=== PATIENT | female | born 1940 | race Caucasian/White ===

== ENCOUNTER 2020-10-09 19:29 | IRF | payer MEDICARE, BC, SELFPAY ==
--- NOTE | ~2020-10-09 | CT_ITS ---
EXAMINATION: CT thoracic lumbar wo con EXAM DATE: 10/15/2020 14:58 INDICATION: Uncontrolled thoracolumbar pain. TECHNIQUE: Spiral CT thoracolumbar spine was performed without contrast. Axial, coronal and sagittal images of the thoracic spine were reviewed. Axial, coronal and sagittal images of the lumbar spine we re reviewed. The dose-length product (DLP) for this examination was 1894.68 mGy-cm. The exposure was tailored according to patient size (auto mA exposure control), and iterative reconstruction (ASIR) w as used as additional dose reduction technique. There is no prior study for comparison. FINDINGS: Short right C7 rib. There are 11 thoracic rib-bearing vertebral bodies. There is transition al thoracolumbar vertebral body which will be designated L1. THORACIC SPINE: Mild diffuse thoracic facet arthropathy, mild to moderate disc disease. The thoracic vertebral body heights are maintained. There is moderate to severe right neural foraminal stenosis at T1-2, moderate on the left. The other thoracic neural foramen appear widely patent. The vertebral imelda dies are aligned in the AP dimension. Paraspinal soft tissue is unremarkable. LUMBAR SPINE: There is a burst fracture of L1 with moderate loss of this vertebral body anteriorly an d centrally, mild loss posteriorly with 5 mm retropulsion. This has been injected with methylmethacry late. Fracture does involve the pedicles and there is a vertical nondisplaced fracture through the po sterior arch in the midline into the spinous process. Moderate central canal stenosis at this level. No other thoracolumbar fractures. Level by level evaluation: There is 3 mm anterolisthesis L4 on L5 without spondylolysis. There is mod erate disc disease, vacuum disc phenomenon L5-S1. Sacrum, sacroiliac joints are intact. T12-L1: There is a mild diffuse disc bulge. Facet arthropathy: None. Neural foraminal stenosis: No stenosis. Central canal stenosis: Mild at the disc, moderate at L2 superior endplate level. L1-L2: There is a mild diffuse disc bulge. Facet arthropathy: Mild. Neural foraminal stenosis: Mild right. Central canal stenosis: Mild. L2-L3: There is a mild diffuse disc bulge. Facet arthropathy: Mild to moderate. Neural foraminal stenosis: No stenosis. Central canal stenosis: No stenosis. L3-L4: There is a mild to moderate diffuse disc bulge. Facet arthropathy: Moderate to severe . Ligamentum flavum enlargement. Neural foraminal stenosis: Mild to moderate left, mild right. Central canal stenosis: Moderate to severe. L4-L5: There is a moderate diffuse disc bulge. Facet arthropathy: Severe . Ligamentum flavum enlargement. Neural foraminal stenosis: Mild to moderate bilateral. Central canal stenosis: Severe. L5-S1: There is a moderate diffuse disc bulge. Facet arthropathy: Severe right, moderate left. Neural foraminal stenosis: Severe right, mild left. Central canal stenosis: Mild to moderate. IMPRESSION: 1. 11 thoracic rib-bearing vertebral bodies, with transitional thoracolumbar segment designated L1. 2. Treated L1 burst fracture with retropulsion causing moderate central canal stenosis. 3. L4-5 grade 1 anterolisthesis, severe central canal stenosis. 4. Less spondylosis other levels. Reviewed, dictated and finalized at location B. ED [facility]OKER IMPRESSION: 1. 11 thoracic rib-bearing vertebral bodies, with transitional thoracolumbar s egment designated L1. 2. Treated L1 burst fracture with retropulsion causing moderate central canal stenosis. 3. L4-5 grade 1 anterolisthesis, severe central canal stenosis. 4. Less spondylosis other levels.
--- NOTE | 2020-10-09 19:14 | ADMGEN ---
This patient, Ayesha Leon, was admitted to [facility] Room 225-02. Patient/family oriented to hospital policies and general routines including ID bracelet, bed and alarms, visiting hours, pain management, procedures, bathroom and other care routines, personal items, smoking policy, room service/diet, and visiting hours. Information on how to activate the Rapid Response Team has been discussed. Patient/Family are encouraged to report perceived risks to care and to ask questions if they do not understand what they are told or what they should do.
[2020-10-09 19:25] VITALS: PULSE 70; RESP 18; O2SAT 92
[2020-10-09 20:00] VITALS: BMI 35.0
[2020-10-09 20:56] VITALS: BP 146/69; PULSE 69; RESP 18; TEMP 36.6; O2SAT 91
[2020-10-09] MEDS: HYDROcodone/acetaminophen (*CRX) 5-325 MG TABLET 1 TAB PO (23:38)
[2020-10-10] MEDS: LEVOTHYROXINE SODIUM 25 MCG TABLET PO (04:51)
[2020-10-10] MEDS: HYDROcodone/acetaminophen (*CRX) 5-325 MG TABLET 1 TAB PO ×4 (04:51→17:51)
[2020-10-10 05:18] LABS: Basophils Absolute Auto 0.1 K/mm3 (0.0-0.1); Basophils Percent Auto 1.2 % (0.2-1.2); Eosinophils Absolute Auto 0.2 K/mm3 (0-0.3); Eosinophils Percent Auto 3.4 % (0-4.4); Hematocrit 38.2 % (37.0-47.0); Hemoglobin 12.8 g/dL (12.0-15.0); Immature Granulocyte Absolute 0.03 K/mm3 (0.00-0.031); Immature Granulocyte Percent A 0.5 % (0-0.5); Lymphocytes Absolute Auto 0.95 K/mm3 (0.9-3.2); Lymphocytes Percent Auto 16.4 % (18.3-44.2); Mean Corpuscular HGB Conc 33.5 g/dl (32-36); Mean Corpuscular Volume 89.5 fl (80-100); Monocytes Absolute Auto 0.6 K/mm3 (0.1-0.6); Monocytes Percent Auto 10.5 % (2.6-8.5); Neutrophils Absolute Auto 3.9 K/mm3 (1.3-6.7); Platelet Count Result 251 k/mm3 (150-375); Red Blood Count 4.27 M/mm3 (4.2-5.4); Red Cell Distribution Width 12.3 % (11.5-14.5); White Blood Count 5.8 K/mm3 (4.5-10.0)
[2020-10-10 05:33] LABS: Anion Gap 3 mmol/L (8-16); Blood Urea Nitrogen 18 mg/dL (7-17); Calcium 8.1 mg/dL (8.4-10.2); Carbon Dioxide 29 mmol/L (22-30); Chloride 104 mmol/L (98-107); Estimated CRCL calculation 74 ml/min; Estimated Glomerular Filt Rate > 60; Glucose 94 mg/dL (65-105); Potassium 4.4 mmol/L (3.4-5.0); Sodium 136 mmol/L (137-145)
[2020-10-10 05:37] VITALS: BP 149/60; PULSE 71; RESP 20; TEMP 36.4; O2SAT 93
[2020-10-10] MEDS: CHOLECALCIFEROL 1,000 UNITS TABLET 1000 UNITS PO (09:04)
[2020-10-10] MEDS: PANTOPRAZOLE 40 MG TABLET PO (09:04)
[2020-10-10] MEDS: TRIAMCINOLONE ACET 0.1% OINT 15 GM TUBE 1 APPLIC TOPICAL ×2 (09:04→17:51)
[2020-10-10] MEDS: ASPIRIN 81 MG ENTERIC TABLET PO (09:04)
[2020-10-10] MEDS: CYANOCOBALAMIN 250 MCG TABLET PO (09:04)
[2020-10-10] MEDS: TAMSULOSIN HCL 0.4 MG CAPSULE PO (09:04)
[2020-10-10] MEDS: OMEGA 3 POLYUNSAT FATTY ACIDS 1 GM CAP PO ×2 (09:04→17:51)
[2020-10-10] MEDS: MINOCYCLINE HCL 50 MG CAPSULE PO ×2 (09:04→17:52)
[2020-10-10] MEDS: CYCLOBENZAPRINE HCL 10 MG TABLET PO (12:50)
[2020-10-10 12:53] VITALS: BMI 35.0
--- NOTE | 2020-10-10 13:37 | PCNSR ---
On 10/10/20, the student, Rocío Jung, provided care and completed [facility] documentation on this patient. I have reviewed the student's documentation and agree with the findings.
[2020-10-10 14:00] VITALS: BP 124/72; PULSE 76; RESP 18; TEMP 36.1; O2SAT 95
--- NOTE | 2020-10-10 14:43 | RPD ---
INDIVIDUALIZED PLAN OF CARE FOR Ayesha Leon Brief Synthesis of Pre-Admission Screen, Post-Admission Evaluation and Therapy Evaluations: The patient presents to rehab with a mechanical fall that resulted in a L1 vertebral fracture. Comorbidities include ankle arthritis, chronic constipation, chronic lower back pain, chronic osteoarthritis, GERD, hyperlipidemia, hypothyroidism, osteoporosis, s/p fall, right mid-lung atelectasis or infiltrate, ABLA, post-operative pain, hypocalcemia, hypoalbuminemia, and face inflammatory rash. The complexity of the patient's medical management, nursing, and therapy needs require an inpatient rehab hospital stay with a physician-led interdisciplinary team approach. The patient?s needs will be best met in an intensive program vs. at a lower level of care. The patient requires physician services for medical oversight, management of postop complications in setting of present comorbidities, and pain management. She will be followed at least three times a week by the rehabilitation physician. Labs will be drawn to monitor blood counts and electrolytes periodically. The patient requires nursing services for DVT prophylactics, infection protection, medication management and education, pressure relief, and wound care. Deficits include:ADLs, Balance, Endurance, Family Training/Education, Mobility, Pain Management, ROM, Safety, Strength, and Transfers. Chief Of Pediatric Urology/Case Management for: Discharge Planning and Patient/Family Counseling Physical Therapy: 5 days per week for 90 minutes. Treatments may include: Therapeutic Exercise, Gait Training, Neuromuscular Re-education, Transfer Training, Community Reintegration, Bed Mobility, Patient/Family Education, Wheelchair Mobility Group Therapy/Concurrent Therapy Rationales: -Improve attention span during functional activities in a distracted environment. -Enhance problem solving and/or adequate judgment skills during functional activities in a distracted environment. -Promote increased safety awareness in a distracted environment to reduce fall risk with functional tasks, transfers, and ambulation to allow a more safe, self-sufficient return to the home environment. -Improve dynamic balance skills to promote safety and independence with functional activities in a distracted environment for maximum gain. Occupational Therapy: 5 days per week for 90 minutes. Treatments may include: Therapeutic Exercise, Therapeutic Activity, Cognitive Training, Self-Care Transfer Training, Community Reintegration, Home Management, Patient/Family Education, Wheelchair Mobility Training, Energy Conservation Training Group Therapy/Concurrent Therapy Rationales: -Allow therapist to observe and teach generalization and carry-over of skills learned in individual therapy. -Enhance problem solving and sequencing skills during therapeutic activities in a distracted environment. -Promote increased safety awareness in a realistic setting to reduce fall risk with functional tasks due to visual and verbal distractions. -Increase functional level with ADLs, ADL transfers and use of adaptive equipment through therapeutic activities with others while promoting safety to allow a more safe, self-sufficient return home. Medical Prognosis: Good Anticipated Length of Stay: 10 days Rehab Goals: Eating Goal: 06-Independent Oral Hygiene Goal: 06-Independent Toileting Hygiene Goal: 06-Independent Shower/Bathe Self Goal: 05-Setup or Clean Up Assistance Upper Body Dressing Goal: 06-Independent Lower Body Dressing Goal: 05-Setup or Clean Up Assistance Putting On/Taking Off Footwear Goal: 05-Setup or Clean Up Assistance Rolling Left and Right Goal: 06-Independent Sit to Lying Goal: 06-Independent Lying to Sitting on Side of Bed Goal: 06-Independent Sit to Stand Goal: 06-Independent Chair/[id number]-[id number] Transfer Goal: 06-Independent Toilet Transfer Goal: 06-Independent Car Transfer Goal: 06-Independent Walk 10' Goal: 06-Independent
--- NOTE | 2020-10-10 15:26 | WPDREHABHP ---
H&P: HPI History of Present Illness Date/Time: 10/10/20 15:26 Chief Complaint: L1 vertebral fracture Narrative: Ayesha Leon is a 80 year old femaleHISTORY OF PRESENT ILLNESS: 80 years old right-handed female has been admitted to the rehab floor of [facility] with the primary rehab impairment category of 0 [id number] and etiological diagnosis of L1 vertebral fracture in addition to the comorbid conditions of 1. Hypothyroidism 2. Lipidemia 3. GERD 4. No history of COVID I saw the patient [id number] on October 10, 2020 at 2:00 p.m. # history and physical exam: the patient is an 80 years old female with past medical history significant for 1. Hypothyroidism 2. hyper lipidemia 3. GERD who presented to [facility] On October 05, 2020 after a mechanical fall. The patient reported she was up at 3:00 a.m. to help her walk to the bathroom, when he lost his balance and fell on top of her. She noted mostly pain in her lower back at that time with electrical pain shooting down to her both feet. The patient denied loss of consciousness or head injury. CT of the lumbar spine revealed an L1 burst fracture with moderate loss of height and 5mm in close mint of the spinal canal secondary to read to Anat probe pulsed posterior border. CT scan of the pelvis is unremarkable. The patient experienced hypoxia secondary to narcotics and desats id to 71% in emergency department after given Dilaudid. Chest x-ray revealed cardiac structure within normal limits, left lung was clear, however atelectasis or infiltrative changes were present in the right mid lung. Neurosurgical service was consulted and surgical intervention was recommended. The patient underwent an L1 balloon kyphoplasty with bone symmetric injected on October 06, 2020 postop complication included acute postoperative pain, hypoxia secondary to narcotic,ABLA, hypocalcemia, hypoalbuminemia, and infirmity rash of face for which she has been taking minocycline as per the flattening machine operator. The patient was awake alert oriented x3 and was discharged to [facility] on Lovenox up until ambulating a distance of 150ft consistently. No back brace was issued but the patient has spinal precautions. She is also receiving tramadol for pain control. And patient to follow up with neurosurgeon 1 week after the discharge from the rehab #COVID: the patient has not traveled outside the [place] or had contact with someone who is ill that has traveled outside the [place] in the past 21 days. The patient has not traveled to an area of the [place] there is experiencing known transmission of the Coronavirus and has not had close personal contact with anyone that has. The patient does not have a fever the patient is not experiencing lower respiratory illness symptoms. The patient received 1st COVID vaccine on September 12, 2020 and on October 05, 2020 COVID test was negative # therapy was initiated at the [facility] care facility and the patient transferred to us from [facility] on October 09, 2020 FALLS OR SURGERIES: The patient has had [no] major surgeries in the 100 days prior to admission. They had [no] falls in the past year. They had [no] falls with injury in the past year. 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 PAST SURGICAL HISTORY: Excision of squamous cell skin cancer of right shoulder, TKR. SOCIAL HISTORY: The patient lives with her in a 1 story home with 3 steps to enter and hand rail. The patient was totally independent with all ADL S, IADL S, and mobility without assistive device. Patient continues to drive. she is the caregiver for her and assist him with all daily tasks. The patient is going to [facility] October 09, 2020 while the patient is in rehab. Plan is for patient to
[2020-10-10 20:00] VITALS: PULSE 66; RESP 16; O2SAT 94
[2020-10-10] MEDS: ENOXAPARIN 40 MG/0.4 ML SYRINGE SUB-Q (20:39)
[2020-10-10] MEDS: traMADol HCL (*CRX) 50 MG TABLET PO (20:43)
[2020-10-10 22:00] VITALS: BP 117/59; PULSE 66; RESP 16; TEMP 36.4; O2SAT 94
[2020-10-11] MEDS: HYDROcodone/acetaminophen (*CRX) 5-325 MG TABLET 1 TAB PO ×5 (00:20→23:51)
[2020-10-11 06:00] VITALS: BP 126/64; PULSE 66; RESP 16; TEMP 36.4; O2SAT 92
[2020-10-11] MEDS: LEVOTHYROXINE SODIUM 25 MCG TABLET PO (06:24)
[2020-10-11] MEDS: TRIAMCINOLONE ACET 0.1% OINT 15 GM TUBE 1 APPLIC TOPICAL ×2 (08:53→17:53)
[2020-10-11] MEDS: ASPIRIN 81 MG ENTERIC TABLET PO (08:53)
[2020-10-11] MEDS: CHOLECALCIFEROL 1,000 UNITS TABLET 1000 UNITS PO (08:53)
[2020-10-11] MEDS: TAMSULOSIN HCL 0.4 MG CAPSULE PO (08:53)
[2020-10-11] MEDS: PANTOPRAZOLE 40 MG TABLET PO (08:53)
[2020-10-11] MEDS: OMEGA 3 POLYUNSAT FATTY ACIDS 1 GM CAP PO ×2 (08:53→17:53)
[2020-10-11] MEDS: MINOCYCLINE HCL 50 MG CAPSULE PO ×2 (08:53→17:53)
[2020-10-11] MEDS: CYANOCOBALAMIN 250 MCG TABLET PO (08:53)
[2020-10-11] MEDS: traMADol HCL (*CRX) 50 MG TABLET PO (08:55)
[2020-10-11] MEDS: CYCLOBENZAPRINE HCL 10 MG TABLET PO ×2 (08:55→23:07)
--- NOTE | 2020-10-11 13:02 | WPDNEURORHBP ---
Subjective Date/time seen: 10/11/20 13:02 80 years old with L1 vertebral body compression fracture in addition to hypothyroidism, lipidemia, GERD, her lab reveals WBC 5.8 hemoglobin 12.8 platelet count 251 basic metabolic panel normal, remains afebrile with temp of 36.4? pulse 66 respirations 16 pulse ox 92 blood pressure 126/64, patient is on room air Review of Systems Review of Systems: All systems reviewed & are unremarkable except as noted in HPI and below Exam Const: General: cooperative, no acute distress, alert and awake Nutritional Appearance: well nourished and overweight Orientation/consciousness: patient oriented x3 Eyes: General: appearance normal, both eyes and all related structures Neck: Neck: full ROM Resp: Effort & Inspection: normal respiratory effort Auscultation: clear to auscultation bilaterally Cardio: Jugular venous distension: no JVD Rate: regular rate Rhythm: regular rhythm GI: Auscultation: normal bowel sounds Skin: General skin exam: no rashes or lesions noted Neuro: General: patient oriented x3 Cranial nerves: Yes CN's II-XII intact bilaterally Cognition (Neuro): normal cognition Motor exam (neuro): 5/5 motor strength present throughout, Pronator motor function not present and No tremor noted Sensory Exam: normal sensation Deep tendon reflexes (DTR's): Right triceps reflex intensity grade: 1+, Left triceps reflex intensity grade: 1+, Rt Biceps (C5, C6): 1+, Left biceps reflex intensity grade: 1+, Right brachioradialis reflex intensity grade: 1+, Left brachioradialis reflex intensity grade: 1+, Right patellar reflex intensity grade: 1+, Left patellar reflex intensity grade: 1+, Right ankle reflex intensity grade: 1+ and Left ankle reflex intensity grade: 1+ Plantar Reflex Responses: downgoing: bilateral Coordination: [id number] test normal Psych: Appearance: grossly normal Objective Data Vital Signs Vital Signs: Vital Signs - 24 hr 10/10/20 14:00 10/10/20 20:00 10/10/20 22:00 Temperature 36.1 C L 36.4 C Pulse Rate 76 66 66 Respiratory Rate 18 16 16 Blood Pressure 124/72 117/59 L Pulse Oximetry 95 94 94 10/11/20 06:00 Temperature 36.4 C L Pulse Rate 66 Respiratory Rate 16 Blood Pressure 126/64 Pulse Oximetry 92 Intake/Output Intake/Output: Intake & Output 10/08/20 10/09/20 10/10/20 10/11/20 23:59 23:59 23:59 23:59 Intake Total 720 480 Balance 720 480 Meds/Results Medications: Active Medications Generic Name Dose Route Start Last Admin Trade Name Freq PRN Reason Stop Dose Admin Acetaminophen 650 mg 10/09/20 22:48 Acetaminophen 325 Mg Tablet PO Q4-6H PRN Pain Rated 1-3 Hydrocodone Bitart/Acetaminophen 1 tab 10/10/20 12:00 10/11/20 12:11 Hydrocodone/Acetaminophen (*Crx) 5-325 Mg Tablet PO 1 tab Q6HR SALOME Administration Al Hydrox/Mg Hydrox/Simethicone 10 ml 10/09/20 22:48 Mag Hydrox/Al Hydrox/Simeth 30 Ml Udc PO Q6H PRN Indigestion Aspirin 81 mg 10/10/20 09:00 10/11/20 08:53 Aspirin 81 Mg Enteric Tablet PO 81 mg DAILY SALOME Administration Bisacodyl 10 mg 10/09/20 22:48 Bisacodyl 10 Mg Suppository RECTAL DAILY PRN Constipation Calcium Carbonate 500 mg 10/10/20 09:00 10/11/20 08:53 Calcium/Vitamin D 500 Mg Tablet PO 500 mg QAM SALOME Administration Cyanocobalamin 250 mcg 10/10/20 09:00 10/11/20 08:53 Cyanocobalamin 250 Mcg Tablet PO 250 mcg DAILY SALOME Administration Cyclobenzaprine HCl 10 mg 10/09/20 22:48 10/11/20 08:55 Cyclobenzaprine Hcl 10 Mg Tablet PO 10 mg TID PRN Administration Muscle Spasm Docusate Sodium 100 mg 10/10/20 08:35 Docusate Sodium 100 Mg Capsule PO BID PRN Constipation Enoxaparin Sodium 40 mg 10/10/20 21:00 10/10/20 20:39 Enoxaparin 40 Mg/0.4 Ml Syringe SUB-Q 40 mg HS SALOME Administration Fish Oil 1 gm 10/10/20 09:00 10/11/20 08:53 [place] 3 Polyunsat Fatty Acids 1 Gm Cap PO 1 gm BID [facility]
[2020-10-11 14:00] VITALS: BP 129/70; PULSE 76; RESP 18; TEMP 36.1; O2SAT 97
[2020-10-11] MEDS: ENOXAPARIN 40 MG/0.4 ML SYRINGE SUB-Q (20:34)
[2020-10-11 22:00] VITALS: BP 127/64; PULSE 72; RESP 18; TEMP 36.2; O2SAT 92
[2020-10-12 04:27] VITALS: BP 131/60; PULSE 65; RESP 18; TEMP 36.2; O2SAT 90
[2020-10-12] MEDS: LEVOTHYROXINE SODIUM 25 MCG TABLET PO (05:54)
[2020-10-12] MEDS: HYDROcodone/acetaminophen (*CRX) 5-325 MG TABLET 1 TAB PO ×3 (05:54→17:58)
[2020-10-12 08:00] VITALS: PULSE 65; RESP 18; O2SAT 90
[2020-10-12] MEDS: OMEGA 3 POLYUNSAT FATTY ACIDS 1 GM CAP PO ×2 (08:32→16:32)
[2020-10-12] MEDS: PANTOPRAZOLE 40 MG TABLET PO (08:32)
[2020-10-12] MEDS: ASPIRIN 81 MG ENTERIC TABLET PO (08:32)
[2020-10-12] MEDS: MINOCYCLINE HCL 50 MG CAPSULE PO ×2 (08:32→16:32)
[2020-10-12] MEDS: TAMSULOSIN HCL 0.4 MG CAPSULE PO (08:32)
[2020-10-12] MEDS: CHOLECALCIFEROL 1,000 UNITS TABLET 1000 UNITS PO (08:32)
[2020-10-12] MEDS: CYCLOBENZAPRINE HCL 10 MG TABLET PO ×2 (08:32→21:16)
[2020-10-12] MEDS: CYANOCOBALAMIN 250 MCG TABLET PO (08:32)
[2020-10-12] MEDS: TRIAMCINOLONE ACET 0.1% OINT 15 GM TUBE 1 APPLIC TOPICAL ×2 (08:34→16:33)
--- OUTSIDE RECORDS SUMMARY | 2020-10-12 10:03 | XMS_ITS ---
:[address] [facility] Address [facility] [place] [address] [place] [address] Care Team Providers Name Role Phone Jose Angela DO Primary Care Provider Reason for Referral (Routine) Status Reason Specialty Diagnoses / Referred By Contact Refe rred To Contact Procedures Canceled Procedures Francisco Caban MD OT eval and treat [address] [place] [address] [phone] Phone: (Routine) Status Reason Specialty Diagnoses / Referred By Contact Refe rred To Contact Procedures Canceled Procedures Francisco Caban MD PT eval and treat [address] [place] [address] [phone] Phone: Surgical (Routine) Status Reason Specialty Diagnoses / Referred By Referred To
--- NOTE | 2020-10-12 12:46 | PCNFU ---
Nutrition Follow-Up Complete: Inadequate oral intake related to pain from L1 vertebral fracture as evidenced by 25% meal consumption. Goal: Meet estimated nutritional needs. Pt current nutrition is a regular diet. Last recorded weight is 86.9 kg. No new weight recorded. Recommend re-weighing patient. Bowel Motility: + BM 10/10 Labs Reviewed: No new labs as of 10/10 Meds Noted:Mylanta, Synthroid, Vitamin B-12, Flexeril, Protonix, Dulcolax, Ultram, Colace, Vitamin D, Lovenox, Lovaza Additional Notes: Spoke with patient. Patient reports not having a great appetite but is doing the best she can. She is currently consuming between 20-100% of her meals. Her appetite fluctuates tremendously. Besides that she had no complaints. She enjoys the food and knows she needs to eat as much as she can to get better. Offered supplement to patient and she was not at all interested. She wants to get her nutrients through food. Monitor patients labs, medications, oral intake, and weight every 5 days.
--- NOTE | 2020-10-12 12:55 | PCNSR ---
On 10/12/20, the student, Rocío Jung, provided care and completed [facility] documentation on this patient. I have reviewed the student's documentation and agree with the findings.
[2020-10-12 14:00] VITALS: BP 129/64; PULSE 90; RESP 20; TEMP 36.7; O2SAT 94
[2020-10-12] MEDS: traMADol HCL (*CRX) 50 MG TABLET PO ×2 (16:33→21:15)
[2020-10-12 20:00] VITALS: PULSE 74; RESP 18; O2SAT 92
[2020-10-12] MEDS: ENOXAPARIN 40 MG/0.4 ML SYRINGE SUB-Q (21:12)
[2020-10-12 22:00] VITALS: BP 128/65; PULSE 74; RESP 18; TEMP 36.2; O2SAT 92
[2020-10-13] MEDS: HYDROcodone/acetaminophen (*CRX) 5-325 MG TABLET 1 TAB PO ×6 (00:23→20:29)
[2020-10-13 05:06] VITALS: BP 127/60; PULSE 66; RESP 18; TEMP 36.1; O2SAT 92
[2020-10-13] MEDS: LEVOTHYROXINE SODIUM 25 MCG TABLET PO (06:14)
[2020-10-13 08:00] VITALS: PULSE 86; RESP 20; O2SAT 96
[2020-10-13] MEDS: ASPIRIN 81 MG ENTERIC TABLET PO (09:30)
[2020-10-13] MEDS: TRIAMCINOLONE ACET 0.1% OINT 15 GM TUBE 1 APPLIC TOPICAL ×2 (09:31→16:34)
[2020-10-13] MEDS: CYANOCOBALAMIN 250 MCG TABLET PO (09:31)
[2020-10-13] MEDS: CHOLECALCIFEROL 1,000 UNITS TABLET 1000 UNITS PO (09:31)
[2020-10-13] MEDS: MINOCYCLINE HCL 50 MG CAPSULE PO ×2 (09:31→16:34)
[2020-10-13] MEDS: TAMSULOSIN HCL 0.4 MG CAPSULE PO (09:31)
[2020-10-13] MEDS: OMEGA 3 POLYUNSAT FATTY ACIDS 1 GM CAP PO ×2 (09:31→16:34)
[2020-10-13] MEDS: traMADol HCL (*CRX) 50 MG TABLET PO ×2 (09:31→14:14)
[2020-10-13] MEDS: PANTOPRAZOLE 40 MG TABLET PO (09:31)
[2020-10-13] MEDS: CYCLOBENZAPRINE HCL 10 MG TABLET PO (10:42)
[2020-10-13 14:00] VITALS: BP 98/68; PULSE 86; RESP 20; TEMP 36.6; O2SAT 96
--- NOTE | 2020-10-13 14:45 | WPDNEURORHBP ---
Subjective Date/time seen: 10/13/20 14:45 80 years old with L1 vertebral body compression fracture in addition to hypothyroidism, hyperlipidemia, GERD, has been involved in the physical therapy and occupational therapy remains stable temp of 36.1? pulse 66 respiration 18 pulse ox 92 on room air blood pressure 127/60 ,no changes in the medication, no new lab Review of Systems Review of Systems: All systems reviewed & are unremarkable except as noted in HPI and below Functional Status Ambulation Ability Ability to Ambulate 10 Feet: Minimum Assistance X 1 Ambulation Assistive Devices: Walker, Wheeled Exam Const: General: cooperative and comfortable Nutritional Appearance: overweight Limitations: no limitations HENMT: Head: normocephalic Ears: hearing grossly normal bilaterally General nose exam: No nasal discharge present Eyes: General: appearance normal, both eyes and all related structures Neck: Neck: full ROM Resp: Effort & Inspection: normal respiratory effort Auscultation: clear to auscultation bilaterally Cardio: Jugular venous distension: no JVD Rate: regular rate GI: Auscultation: normal bowel sounds Neuro: General: patient oriented x3 Cranial nerves: Yes CN's II-XII intact bilaterally Gait exam (Neuro): Unable to assess gait Sensory Exam: normal sensation Deep tendon reflexes (DTR's): Right triceps reflex intensity grade: 1+, Left triceps reflex intensity grade: 1+, Rt Biceps (C5, C6): 1+, Left biceps reflex intensity grade: 1+, Right brachioradialis reflex intensity grade: 1+, Left brachioradialis reflex intensity grade: 1+, Right patellar reflex intensity grade: 1+, Left patellar reflex intensity grade: 1+, Right ankle reflex intensity grade: 1+ and Left ankle reflex intensity grade: 1+ Plantar Reflex Responses: downgoing: right, left and bilateral Coordination: [id number] test normal Psych: Appearance: grossly normal Objective Data Vital Signs Vital Signs: Vital Signs - 24 hr 10/12/20 20:00 10/12/20 22:00 10/13/20 05:06 Temperature 36.2 C L 36.1 C L Pulse Rate 74 74 66 Respiratory Rate 18 18 18 Blood Pressure 128/65 127/60 Pulse Oximetry 92 92 92 Intake/Output Intake/Output: Intake & Output 10/10/20 10/11/20 10/12/20 10/13/20 23:59 23:59 23:59 23:59 Intake Total 720 960 720 480 Balance 720 960 720 480 Meds/Results Medications: Active Medications Generic Name Dose Route Start Last Admin Trade Name Lenora PRN Reason Stop Dose Admin Acetaminophen 650 mg 10/09/20 22:48 Acetaminophen 325 Mg Tablet PO Q4-6H PRN Pain Rated 1-3 Hydrocodone Bitart/Acetaminophen 1 tab 10/13/20 12:00 10/13/20 12:35 Hydrocodone/Acetaminophen (*Crx) 5-325 Mg Tablet PO 1 tab Q4H SALOME Administration Al Hydrox/Mg Hydrox/Simethicone 10 ml 10/09/20 22:48 Mag Hydrox/Al Hydrox/Simeth 30 Ml Udc PO Q6H PRN Indigestion Aspirin 81 mg 10/10/20 09:00 10/13/20 09:30 Aspirin 81 Mg Enteric Tablet PO 81 mg DAILY SALOME Administration Bisacodyl 10 mg 10/09/20 22:48 Bisacodyl 10 Mg Suppository RECTAL DAILY PRN Constipation Calcium Carbonate 500 mg 10/10/20 09:00 10/13/20 09:31 Calcium/Vitamin D 500 Mg Tablet PO 500 mg QAM SALOME Administration Cyanocobalamin 250 mcg 10/10/20 09:00 10/13/20 09:31 Cyanocobalamin 250 Mcg Tablet PO 250 mcg DAILY SALOME Administration Cyclobenzaprine HCl 10 mg 10/09/20 22:48 10/13/20 10:42 Cyclobenzaprine Hcl 10 Mg Tablet PO 10 mg TID PRN Administration Muscle Spasm Docusate Sodium 100 mg 10/10/20 08:35 Docusate Sodium 100 Mg Capsule PO BID PRN Constipation Enoxaparin Sodium 40 mg 10/10/20 21:00 10/12/20 21:12 Enoxaparin 40 Mg/0.4 Ml Syringe SUB-Q 40 mg HS SALOME Administration Fish Oil 1 gm 10/10/20 09:00 10/13/20 09:31 [place] 3 Polyunsat Fatty Acids 1 Gm Cap PO 1 gm BID SALOME Administration Levothyroxine Sodium 25 mcg 10/10/20 06:30 10/13/20 06:1
[2020-10-13 20:00] VITALS: PULSE 86; RESP 20; O2SAT 96
[2020-10-13] MEDS: ENOXAPARIN 40 MG/0.4 ML SYRINGE SUB-Q (20:30)
[2020-10-13 21:36] VITALS: BP 117/62; PULSE 80; RESP 18; TEMP 36.4; O2SAT 97
[2020-10-14] MEDS: CYCLOBENZAPRINE HCL 10 MG TABLET PO ×2 (02:25→10:11)
[2020-10-14 04:39] VITALS: BP 122/60; PULSE 66; RESP 18; TEMP 36.2; O2SAT 90
[2020-10-14] MEDS: LEVOTHYROXINE SODIUM 25 MCG TABLET PO (05:01)
[2020-10-14] MEDS: HYDROcodone/acetaminophen (*CRX) 5-325 MG TABLET 1 TAB PO ×5 (05:01→20:25)
[2020-10-14] MEDS: ASPIRIN 81 MG ENTERIC TABLET PO (08:40)
[2020-10-14] MEDS: TAMSULOSIN HCL 0.4 MG CAPSULE PO (08:40)
[2020-10-14] MEDS: MINOCYCLINE HCL 50 MG CAPSULE PO ×2 (08:40→17:07)
[2020-10-14] MEDS: OMEGA 3 POLYUNSAT FATTY ACIDS 1 GM CAP PO ×2 (08:40→17:07)
[2020-10-14] MEDS: PANTOPRAZOLE 40 MG TABLET PO (08:40)
[2020-10-14] MEDS: TRIAMCINOLONE ACET 0.1% OINT 15 GM TUBE 1 APPLIC TOPICAL ×2 (08:40→17:08)
[2020-10-14] MEDS: CHOLECALCIFEROL 1,000 UNITS TABLET 1000 UNITS PO (08:40)
[2020-10-14] MEDS: CYANOCOBALAMIN 250 MCG TABLET PO (08:41)
[2020-10-14] MEDS: traMADol HCL (*CRX) 50 MG TABLET PO (10:11)
[2020-10-14 14:00] VITALS: BP 107/58; PULSE 75; RESP 20; TEMP 36.3; O2SAT 95
[2020-10-14] MEDS: ENOXAPARIN 40 MG/0.4 ML SYRINGE SUB-Q (20:25)
[2020-10-14 21:21] VITALS: BP 120/65; PULSE 81; RESP 18; TEMP 36.1; O2SAT 99
[2020-10-15] MEDS: HYDROcodone/acetaminophen (*CRX) 5-325 MG TABLET 1 TAB PO ×6 (00:02→20:54)
[2020-10-15] MEDS: LEVOTHYROXINE SODIUM 25 MCG TABLET PO (05:16)
[2020-10-15 05:27] VITALS: BP 126/76; PULSE 76; RESP 20; TEMP 36.4; O2SAT 100
[2020-10-15] MEDS: CHOLECALCIFEROL 1,000 UNITS TABLET 1000 UNITS PO (08:36)
[2020-10-15] MEDS: ASPIRIN 81 MG ENTERIC TABLET PO (08:36)
[2020-10-15] MEDS: PANTOPRAZOLE 40 MG TABLET PO (08:37)
[2020-10-15] MEDS: CYANOCOBALAMIN 250 MCG TABLET PO (08:37)
[2020-10-15] MEDS: OMEGA 3 POLYUNSAT FATTY ACIDS 1 GM CAP PO ×2 (08:37→17:10)
[2020-10-15] MEDS: MINOCYCLINE HCL 50 MG CAPSULE PO ×2 (08:37→17:10)
[2020-10-15] MEDS: TRIAMCINOLONE ACET 0.1% OINT 15 GM TUBE 1 APPLIC TOPICAL ×2 (08:37→17:11)
[2020-10-15] MEDS: TAMSULOSIN HCL 0.4 MG CAPSULE PO (08:37)
[2020-10-15] MEDS: CYCLOBENZAPRINE HCL 10 MG TABLET PO (08:43)
--- NOTE | 2020-10-15 10:04 | WPDNEURORHBP ---
Subjective Date/time seen: 10/15/20 10:04 80 years old with L1 vertebral body compression fracture in addition to hypothyroidism, hyperlipidemia, GERD, has been involved in therapy regularly, remains afebrile with temp of 36.4? pulse 76 respirations 20 pulse ox 100 blood pressure 126/76, no new lab at this time Review of Systems Review of Systems: All systems reviewed & are unremarkable except as noted in HPI and below Functional Status Ambulation Ability Ability to Ambulate 10 Feet: Minimum Assistance X 1 Ambulation Assistive Devices: Walker, Wheeled Exam Const: General: cooperative, comfortable and no acute distress Nutritional Appearance: average body habitus and overweight Orientation/consciousness: patient oriented x3 Limitations: other limitations ( neurological) HENMT: Ears: hearing grossly normal bilaterally General nose exam: Normal external nose present and No nasal discharge present Face and sinus: normal facial exam Mouth: Yes Normal oral and palatal mucosa present Eyes: General: appearance normal, both eyes and all related structures Neck: Neck: full ROM Resp: Effort & Inspection: normal respiratory effort Auscultation: clear to auscultation bilaterally Cardio: Jugular venous distension: no JVD Rate: regular rate Rhythm: regular rhythm GI: Auscultation: normal bowel sounds Skin: General skin exam: no rashes or lesions noted Neuro: General: patient oriented x3 Cranial nerves: Yes CN's II-XII intact bilaterally Cognition (Neuro): normal cognition Speech: normal speech Gait exam (Neuro): Assisted gait required Motor exam (neuro): 5/5 motor strength present throughout Sensory Exam: normal sensation Plantar Reflex Responses: downgoing: bilateral Coordination: [id number] test normal Psych: Appearance: grossly normal Objective Data Vital Signs Vital Signs: Vital Signs - 24 hr 10/14/20 14:00 10/14/20 21:21 10/15/20 05:27 Temperature 36.3 C L 36.1 C L 36.4 C Pulse Rate 75 81 76 Respiratory Rate 20 18 20 Blood Pressure 107/58 L 120/65 126/76 Pulse Oximetry 95 99 100 Intake/Output Intake/Output: Intake & Output 10/12/20 10/13/20 10/14/20 10/15/20 23:59 23:59 23:59 23:59 Intake Total 720 720 720 240 Balance 720 720 720 240 Meds/Results Medications: Active Medications Generic Name Dose Route Start Last Admin Trade Name Freq PRN Reason Stop Dose Admin Acetaminophen 650 mg 10/09/20 22:48 Acetaminophen 325 Mg Tablet PO Q4-6H PRN Pain Rated 1-3 Hydrocodone Bitart/Acetaminophen 1 tab 10/13/20 12:00 10/15/20 08:36 Hydrocodone/Acetaminophen (*Crx) 5-325 Mg Tablet PO 1 tab Q4H [facility] Administration Al Hydrox/Mg Hydrox/Simethicone 10 ml 10/09/20 22:48 Mag Hydrox/Al Hydrox/Simeth 30 Ml Udc PO Q6H PRN Indigestion Aspirin 81 mg 10/10/20 09:00 10/15/20 08:36 Aspirin 81 Mg Enteric Tablet PO 81 mg DAILY [facility] Administration Bisacodyl 10 mg 10/09/20 22:48 Bisacodyl 10 Mg Suppository RECTAL DAILY PRN Constipation Calcium Carbonate 500 mg 10/10/20 09:00 10/15/20 08:36 Calcium/Vitamin D 500 Mg Tablet PO 500 mg QAM [facility] Administration Cyanocobalamin 250 mcg 10/10/20 09:00 10/15/20 08:37 Cyanocobalamin 250 Mcg Tablet PO 250 mcg DAILY [facility] Administration Cyclobenzaprine HCl 10 mg 10/09/20 22:48 10/15/20 08:43 Cyclobenzaprine Hcl 10 Mg Tablet PO 10 mg TID PRN Administration Muscle Spasm Docusate Sodium 100 mg 10/10/20 08:35 Docusate Sodium 100 Mg Capsule PO BID PRN Constipation Enoxaparin Sodium 40 mg 10/10/20 21:00 10/14/20 20:25 Enoxaparin 40 Mg/0.4 Ml Syringe SUB-Q 40 mg HS [facility] Administration Fish Oil 1 gm 10/10/20 09:00 10/15/20 08:37 [place] 3 Polyunsat Fatty Acids 1 Gm Cap PO 1 gm BID [facility] Administration Levothyroxine Sodium 25 mcg 10/10/20 06:30 10/15/20 05:16 Levothyroxine Sodium 25 Mcg Tablet PO 25 mcg DAILY@0630 [facility] Administrati
[2020-10-15] MEDS: traMADol HCL (*CRX) 50 MG TABLET PO (13:52)
[2020-10-15 14:00] VITALS: BP 137/82; PULSE 109; RESP 20; TEMP 36.2; O2SAT 96
--- NOTE | 2020-10-15 14:55 | PCPTNOTE ---
Ayesha Leon was evaluated for a wheeled walker on 10/15/2020 by this physical therapist. The wheeled walker will resolve patient's mobility limitations and will be used for ADL's within the home. The patient can safely use the wheeled walker. ?The wheeled walker will resolve the patient?s mobility deficits, including poor endurance, strength and balance deficits.
--- NOTE | 2020-10-15 15:56 | PCPTNOTE ---
Carmen Curran PTA completed an inpatient rehab wheelchair evaluation on Ayesha Leon on 10/15/2020. The patient is unable to safely and independently ambulate household distances due to their current impairments. Their diagnosis is L1 Vertebral fx and their impairments include decreased strength, decreased endurance, decreased range of motion, decreased balance, and lower extremity weakness. Ayesha's weight bearing status is weight-bearing as tolerated on the bilateral lower legs. The patient demonstrates significant functional mobility limitations that impair their ability to participate in mobility-related activities of daily living (MRADLs), including toileting, feeding, dressing, grooming, and bathing in the customary locations in the home. These limitations cannot be sufficiently resolved by the use of an appropriately fitted cane or walker. It is recommended that the patient utilize a wheelchair for functional mobility within the home in order to facilitate optimal safety, independence and participation in all MRADL's and adequately access their home environment on a regular basis. The patient's home provides adequate access between rooms, maneuvering space, and surfaces to accommodate the recommended wheelchair. The use of a wheelchair for functional mobility is strongly recommended and the patient is receptive to using the wheelchair. The use of this wheelchair will significantly improve the patient's ability to participate in MRADLS and the patient will use it on a regular basis in the home. This will facilitate optimal safety, independence, and participation. The patient has demonstrated sufficient physical and mental capabilities needed to safely propel a manual wheelchair that is provided in the home during a typical day. Recommended Wheelchair Frame: STANDARD Recommended Wheelchair Size: 18 X 18 Recommended Wheelchair Cushion: STANDARD Wheelchair Leg Recommendations: BILATERAL SWING AWAY LEG RESTS -Anti-tippers are recommended due to patient demonstrating increased risk for falls. They would benefit from anti-tippers with added safety and stabilization. Carmen Curran PTA 10/15/20 Evaluating Therapist Date I agree with and certify that the above recommendation is medically necessary. Referring Physician Date I agree with and certify that the above recommendation is medically necessary. Referring Physician Date
[2020-10-15] MEDS: ENOXAPARIN 40 MG/0.4 ML SYRINGE SUB-Q (20:55)
[2020-10-15 21:17] VITALS: BP 104/75; PULSE 82; RESP 18; TEMP 36.4; O2SAT 93
[2020-10-15 21:20] VITALS: BP 104/75; PULSE 82; RESP 18; TEMP 36.4; O2SAT 93
[2020-10-15 21:32] VITALS: BP 104/75; PULSE 82; RESP 18; TEMP 36.4; O2SAT 93
[2020-10-16] MEDS: HYDROcodone/acetaminophen (*CRX) 5-325 MG TABLET 1 TAB PO ×6 (00:46→20:43)
[2020-10-16] MEDS: LEVOTHYROXINE SODIUM 25 MCG TABLET PO (05:34)
[2020-10-16 05:38] VITALS: BP 124/65; PULSE 74; RESP 18; TEMP 36.2; O2SAT 95
[2020-10-16] MEDS: CHOLECALCIFEROL 1,000 UNITS TABLET 1000 UNITS PO (08:04)
[2020-10-16] MEDS: TAMSULOSIN HCL 0.4 MG CAPSULE PO (08:05)
[2020-10-16] MEDS: CYANOCOBALAMIN 250 MCG TABLET PO (08:05)
[2020-10-16] MEDS: MINOCYCLINE HCL 50 MG CAPSULE PO ×2 (08:05→16:46)
[2020-10-16] MEDS: PANTOPRAZOLE 40 MG TABLET PO (08:05)
[2020-10-16] MEDS: OMEGA 3 POLYUNSAT FATTY ACIDS 1 GM CAP PO ×2 (08:05→16:46)
[2020-10-16] MEDS: ASPIRIN 81 MG ENTERIC TABLET PO (08:05)
[2020-10-16] MEDS: TRIAMCINOLONE ACET 0.1% OINT 15 GM TUBE 1 APPLIC TOPICAL ×2 (08:06→16:47)
--- NOTE | 2020-10-16 11:03 | PC.NURSE ---
Addendum entered by Moon Chow RN 10/16/20 15:23: Appointment is made for patient with Dr. Holm on October 22 at 's office. Patient is at present filling out paperwork. Son Anton is aware and will take patient to the appointment after discharge from [facility]. Appointment is at 1:30PM. Original Note: CT of thoracic and lumbar back done on 10/15, results to Dr. Holm and he discussed with patient. She will need to set up appointment with Dr. Holm at his office after discharge to discuss surgery. patient tearful and needing much reassurance.
--- NOTE | 2020-10-16 13:52 | WPDNEURORHBP ---
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 of enlargement mild to moderate central canal stenosis at L5-S1 and mild central stenosis at L1-L2 these findings were discussed with the patient as well as family she will be probably referred to neurosurgical service according Review of Systems Review of Systems: All systems reviewed & are unremarkable except as noted in HPI and below Functional Status Ambulation Ability Ability to Ambulate 10 Feet: Contact Guard Ambulation Assistive Devices: Walker, Wheeled Exam Const: General: cooperative, alert, awake, acute distress and uncomfortable Nutritional Appearance: overweight Orientation/consciousness: patient oriented x3 HENMT: Head: normocephalic Ears: hearing grossly normal bilaterally General nose exam: Normal external nose present and No nasal discharge present Face and sinus: normal facial exam Mouth: Yes Normal oral and palatal mucosa present Eyes: General: appearance normal, both eyes and all related structures Alignment and Position: alignment normal Periorbital: periorbital findings normal Eyelids: eyelids normal Conjunctivae: conjunctivae normal Sclera: sclerae normal Cornea: corneas normal Pupils: Equal, round and reactive pupils present EOM: EOMs intact bilaterally Neck: Neck: full ROM Resp: Effort & Inspection: able to speak in complete sentences Cardio: Rhythm: regular rhythm GI: Auscultation: normal bowel sounds Skin: General skin exam: no rashes or lesions noted Neuro: General: patient oriented x3 Cranial nerves: Yes CN's II-XII intact bilaterally Cognition (Neuro): normal cognition Sensory Exam: Sensory deficit (Neuro) Deep tendon reflexes (DTR's): Right patellar reflex intensity grade: 1+, Left patellar reflex intensity grade: 1+, Right ankle reflex intensity grade: 1+ and Left ankle reflex intensity grade: 1+ Plantar Reflex Responses: downgoing: bilateral Coordination: [id number] test normal Objective Data Vital Signs Vital Signs: Vital Signs - 24 hr 10/15/20 14:00 10/15/20 21:17 10/15/20 21:20 Temperature 36.2 C L 36.4 C L 36.4 C L Pulse Rate 109 H 82 82 Respiratory Rate 20 18 18 Blood Pressure 137/82 104/75 104/75 Pulse Oximetry 96 93 93 10/15/20 21:32 10/16/20 05:38 Temperature 36.4 C L 36.2 C L Pulse Rate 82 74 Respiratory Rate 18 18 Blood Pressure 104/75 124/65 Pulse Oximetry 93 95 Intake/Output Intake/Output: Intake & Output 10/13/20 10/14/20 10/15/20 10/16/20 23:59 23:59 23:59 23:59 Intake Total 720 720 480 840 Balance 720 720 480 840 Meds/Results Medications: Active Medications Generic Name Dose Route Start Last Admin Trade Name Freq PRN Reason Stop Dose Admin Acetaminophen 650 mg 10/09/20 22:48 Acetaminophen 325 Mg Tablet PO Q4-6H PRN Pain Rated 1-3 Hydrocodone Bitart/Acetaminophen 1 tab 10/13/20 12:00 10/16/20 12:10 Hydrocodone/Acetaminophen (*Crx) 5-325 Mg Tablet PO 1 tab Q4H [facility] Administration Al Hydrox/Mg Hydrox/Simethicone 10 ml 10/09/20 22:48 Mag Hydrox/Al Hydrox/Simeth 30 Ml Udc PO Q6H PRN Indigestion Aspirin 81 mg 10/10/20 09:00 10/16/20 08:05 Aspirin 81 Mg Enteric Tablet PO 81 mg DAILY [facility] Administration Bisacodyl 10 mg 10/09/20 22:48 Bisacodyl 10 Mg Suppository RECTAL DAILY PRN Constipation Calcium Carbonate 500 mg 10/10/20 09:00 10/16/20 08:06 Calcium/Vitamin D 500 Mg Tablet PO 500 mg QAM [facility] Administration Cyanocobalamin 250 mcg 10/10/20 09:00 10/16/20 08:05 Cyanocobalamin 250 Mcg Tablet PO 250 mcg DAILY [facility] Administration Cyclobenzaprine HCl 10 mg
[2020-10-16 14:00] VITALS: BP 151/91; PULSE 96; RESP 18; TEMP 36.9; O2SAT 99
[2020-10-16] MEDS: ENOXAPARIN 40 MG/0.4 ML SYRINGE SUB-Q (20:43)
[2020-10-16 22:00] VITALS: BP 109/65; PULSE 90; RESP 16; TEMP 36.3; O2SAT 94
[2020-10-17] MEDS: HYDROcodone/acetaminophen (*CRX) 5-325 MG TABLET 1 TAB PO ×6 (00:23→20:38)
[2020-10-17 04:55] LABS: Basophils Absolute Auto 0.1 K/mm3 (0.0-0.1); Basophils Percent Auto 1.5 % (0.2-1.2); Eosinophils Absolute Auto 0.4 K/mm3 (0-0.3); Eosinophils Percent Auto 7.7 % (0-4.4); Hematocrit 35.8 % (37.0-47.0); Hemoglobin 11.8 g/dL (12.0-15.0); Immature Granulocyte Absolute 0.03 K/mm3 (0.00-0.031); Immature Granulocyte Percent A 0.6 % (0-0.5); Lymphocytes Absolute Auto 1.08 K/mm3 (0.9-3.2); Lymphocytes Percent Auto 20.7 % (18.3-44.2); Mean Corpuscular Hemoglobin 29.3 pg (26-34); Mean Corpuscular Volume 88.8 fl (80-100); Mean Platelet Volume 8.6 fl (7.4-10.4); Monocytes Absolute Auto 0.5 K/mm3 (0.1-0.6); Monocytes Percent Auto 10.2 % (2.6-8.5); Neutrophils Absolute Auto 3.1 K/mm3 (1.3-6.7); Neutrophils Percent Auto 59.3 % (45.5-73.1); Platelet Count Result 355 k/mm3 (150-375); Red Blood Count 4.03 M/mm3 (4.2-5.4); Red Cell Distribution Width 12.5 % (11.5-14.5); White Blood Count 5.2 K/mm3 (4.5-10.0)
[2020-10-17] MEDS: LEVOTHYROXINE SODIUM 25 MCG TABLET PO (05:55)
[2020-10-17 06:00] VITALS: BP 101/59; PULSE 68; RESP 16; TEMP 36.2; O2SAT 92
[2020-10-17 06:35] LABS: Anion Gap 4 mmol/L (8-16); Blood Urea Nitrogen 16 mg/dL (7-17); Calcium 8.3 mg/dL (8.4-10.2); Carbon Dioxide 29 mmol/L (22-30); Chloride 102 mmol/L (98-107); Estimated CRCL calculation 55 ml/min; Estimated Glomerular Filt Rate > 60; Glucose 101 mg/dL (65-105); Potassium 3.6 mmol/L (3.4-5.0); Sodium 135 mmol/L (137-145)
[2020-10-17] MEDS: CYANOCOBALAMIN 250 MCG TABLET PO (08:19)
[2020-10-17] MEDS: ASPIRIN 81 MG ENTERIC TABLET PO (08:19)
[2020-10-17] MEDS: TRIAMCINOLONE ACET 0.1% OINT 15 GM TUBE 1 APPLIC TOPICAL ×2 (08:19→16:56)
[2020-10-17] MEDS: OMEGA 3 POLYUNSAT FATTY ACIDS 1 GM CAP PO ×2 (08:19→16:56)
[2020-10-17] MEDS: CHOLECALCIFEROL 1,000 UNITS TABLET 1000 UNITS PO (08:19)
[2020-10-17] MEDS: MINOCYCLINE HCL 50 MG CAPSULE PO ×2 (08:19→16:55)
[2020-10-17] MEDS: PANTOPRAZOLE 40 MG TABLET PO (08:19)
[2020-10-17] MEDS: TAMSULOSIN HCL 0.4 MG CAPSULE PO (08:19)
[2020-10-17] MEDS: CYCLOBENZAPRINE HCL 10 MG TABLET PO (11:03)
[2020-10-17] MEDS: LACTULOSE 20 GM/30 ML UDC 30 GM PO (12:30)
--- NOTE | 2020-10-17 12:59 | PCDIET ---
Nutrition Follow-Up Complete: Nutrition Diagnosis: Inadequate oral intake related to pain from L1 vertebral fracture as evidenced by 25% meal consumption. Nutrition Goal: Meet estimated nutritional needs. Goal met. Patient consumed average of 73% of meals since 10/13/20 on regular diet. States appetite is not great, but has been able to eat pretty well at most meals. Last recorded weight is 86.9 kg. Recommend obtaining new weight. Bowel Motility: Last documented BM on 10/14/20. Labs Reviewed: Hgb (11.8), Hct (35.8), Na (135), Ca (8.3) Meds Noted: [place], Oscal, Vitamin B12, Colace, Lovaza, Synthroid, Protonix, Vitamin D Additional Notes: Back incision with steri strips. No documented pressure sores. Will continue to monitor with same goal. Nutrition Monitoring and Evaluation: Follow up in 7 days.
[2020-10-17 14:00] VITALS: BP 119/68; PULSE 91; RESP 18; TEMP 36.7; O2SAT 97
--- NOTE | 2020-10-17 16:36 | WPDNEURORHBP ---
Subjective Date/time seen: 10/17/20 16:36 80 years old with L1 vertebral body compression fracture and recent CT scan compatible with spinal stenosis she will be referred to neurosurgical service once she is discharged from here Review of Systems Review of Systems: All systems reviewed & are unremarkable except as noted in HPI and below Functional Status Ambulation Ability Ability to Ambulate 10 Feet: Contact Guard Ambulation Assistive Devices: Walker, Wheeled Exam Const: Limitations: no limitations Eyes: General: appearance normal, both eyes and all related structures Neck: Neck: full ROM Resp: Effort & Inspection: able to speak in complete sentences Cardio: Rate: regular rate GI: Auscultation: normal bowel sounds Neuro: General: patient oriented x3 Cranial nerves: Yes CN's II-XII intact bilaterally Cognition (Neuro): normal cognition Motor exam (neuro): 5/5 motor strength present throughout Deep tendon reflexes (DTR's): Right patellar reflex intensity grade: 1+, Left patellar reflex intensity grade: 1+, Right ankle reflex intensity grade: 0 and Left ankle reflex intensity grade: 0 Psych: Appearance: grossly normal Objective Data Vital Signs Vital Signs: Vital Signs - 24 hr 10/16/20 22:00 10/17/20 06:00 10/17/20 14:00 Temperature 36.3 C L 36.2 C L 36.7 C Pulse Rate 90 68 91 Respiratory Rate 16 16 18 Blood Pressure 109/65 101/59 L 119/68 Pulse Oximetry 94 92 97 Intake/Output Intake/Output: Intake & Output 10/14/20 10/15/20 10/16/20 10/17/20 23:59 23:59 23:59 23:59 Intake Total 605 913 7862 480 Balance 481 211 3836 480 Meds/Results Medications: Active Medications Generic Name Dose Route Start Last Admin Trade Name Freq PRN Reason Stop Dose Admin Acetaminophen 650 mg 10/09/20 22:48 Acetaminophen 325 Mg Tablet PO Q4-6H PRN Pain Rated 1-3 Hydrocodone Bitart/Acetaminophen 1 tab 10/13/20 12:00 10/17/20 11:03 Hydrocodone/Acetaminophen (*Crx) 5-325 Mg Tablet PO 1 tab Q4H [facility] Administration Al Hydrox/Mg Hydrox/Simethicone 10 ml 10/09/20 22:48 Mag Hydrox/Al Hydrox/Simeth 30 Ml Udc PO Q6H PRN Indigestion Aspirin 81 mg 10/10/20 09:00 10/17/20 08:19 Aspirin 81 Mg Enteric Tablet PO 81 mg DAILY [facility] Administration Bisacodyl 10 mg 10/09/20 22:48 Bisacodyl 10 Mg Suppository RECTAL DAILY PRN Constipation Calcium Carbonate 500 mg 10/10/20 09:00 10/17/20 08:19 Calcium/Vitamin D 500 Mg Tablet PO 500 mg QAM [facility] Administration Cyanocobalamin 250 mcg 10/10/20 09:00 10/17/20 08:19 Cyanocobalamin 250 Mcg Tablet PO 250 mcg DAILY [facility] Administration Cyclobenzaprine HCl 10 mg 10/09/20 22:48 10/17/20 11:03 Cyclobenzaprine Hcl 10 Mg Tablet PO 10 mg TID PRN Administration Muscle Spasm Docusate Sodium 100 mg 10/10/20 08:35 Docusate Sodium 100 Mg Capsule PO BID PRN Constipation Enoxaparin Sodium 40 mg 10/10/20 21:00 10/16/20 20:43 Enoxaparin 40 Mg/0.4 Ml Syringe SUB-Q 40 mg HS [facility] Administration Fish Oil 1 gm 10/10/20 09:00 10/17/20 08:19 [place] 3 Polyunsat Fatty Acids 1 Gm Cap PO 1 gm BID [facility] Administration Levothyroxine Sodium 25 mcg 10/10/20 06:30 10/17/20 05:55 Levothyroxine Sodium 25 Mcg Tablet PO 25 mcg DAILY@0630 [facility] Administration Minocycline HCl 50 mg 10/10/20 09:00 10/17/20 08:19 Minocycline Hcl 50 Mg Capsule PO 50 mg BID [facility] Administration Non-Formulary Medication 1 applic 10/10/20 09:00 10/10/20 12:26 Fluorouracil [Efudex] TOPICAL 11/09/20 09:01 Not Given DAILY [facility] Pantoprazole Sodium 40 mg 10/10/20 09:00 10/17/20 08:19 Pantoprazole 40 Mg Tablet PO 40 mg QAM [facility] Administration Senna/Docusate Sodium 2 tab 10/17/20 21:00 Senna/Docusate Sodium Tablet PO Q12H [facility] Tamsulosin HCl 0.4 mg 10/10/20 09:00 10/17/20 08:19 Tamsulosin Hcl 0.4 Mg Capsule PO 0.4 mg DAILY [facility] Administration Trama
[2020-10-17 20:00] VITALS: PULSE 91; RESP 18; O2SAT 97
[2020-10-17] MEDS: SENNA/DOCUSATE SODIUM TABLET 2 TAB PO (20:37)
[2020-10-17] MEDS: ENOXAPARIN 40 MG/0.4 ML SYRINGE SUB-Q (20:38)
[2020-10-17 21:56] VITALS: BP 107/62; PULSE 83; RESP 18; TEMP 36.5; O2SAT 93
[2020-10-18] MEDS: HYDROcodone/acetaminophen (*CRX) 5-325 MG TABLET 1 TAB PO ×7 (00:46→23:42)
[2020-10-18] MEDS: LEVOTHYROXINE SODIUM 25 MCG TABLET PO (04:48)
[2020-10-18 05:55] VITALS: BP 111/54; PULSE 86; RESP 18; TEMP 36.2; O2SAT 96
[2020-10-18] MEDS: OMEGA 3 POLYUNSAT FATTY ACIDS 1 GM CAP PO ×2 (07:55→17:07)
[2020-10-18] MEDS: MINOCYCLINE HCL 50 MG CAPSULE PO ×2 (07:55→17:08)
[2020-10-18] MEDS: ASPIRIN 81 MG ENTERIC TABLET PO (07:55)
[2020-10-18] MEDS: TRIAMCINOLONE ACET 0.1% OINT 15 GM TUBE 1 APPLIC TOPICAL ×2 (07:55→17:07)
[2020-10-18] MEDS: SENNA/DOCUSATE SODIUM TABLET 2 TAB PO ×2 (07:55→20:40)
[2020-10-18] MEDS: CHOLECALCIFEROL 1,000 UNITS TABLET 1000 UNITS PO (07:56)
[2020-10-18] MEDS: TAMSULOSIN HCL 0.4 MG CAPSULE PO (07:56)
[2020-10-18] MEDS: PANTOPRAZOLE 40 MG TABLET PO (07:56)
[2020-10-18] MEDS: CYANOCOBALAMIN 250 MCG TABLET PO (07:56)
[2020-10-18] MEDS: CYCLOBENZAPRINE HCL 10 MG TABLET PO (09:50)
--- NOTE | 2020-10-18 13:11 | WPDNEURORHBP ---
Subjective Date/time seen: 10/18/20 13:11 L1 vertebral body compression fracture in addition to spinal stenosis has been involved in the physical therapy and occupational therapy and looks fairly comfortable vital signs are stable with temp 36.2? blood pressure 111/54, medications unchanged and lab unremarkable Review of Systems Review of Systems: All systems reviewed & are unremarkable except as noted in HPI and below Functional Status Ambulation Ability Ability to Ambulate 10 Feet: Contact Guard Ambulation Assistive Devices: Walker, Wheeled Exam Const: General: cooperative and no acute distress Nutritional Appearance: overweight Orientation/consciousness: oriented to person and oriented to place Eyes: General: appearance normal, both eyes and all related structures Resp: Effort & Inspection: normal respiratory effort and able to speak in complete sentences Auscultation: clear to auscultation bilaterally Cardio: Rate: regular rate Rhythm: regular rhythm Skin: General skin exam: no rashes or lesions noted Neuro: General: oriented to person and oriented to place Cranial nerves: Yes CN's II-XII intact bilaterally Motor exam (neuro): 5/5 motor strength present throughout Psych: Appearance: grossly normal Objective Data Vital Signs Vital Signs: Vital Signs - 24 hr 10/17/20 14:00 10/17/20 20:00 10/17/20 21:56 Temperature 36.7 C 36.5 C Pulse Rate 91 91 83 Respiratory Rate 18 18 18 Blood Pressure 119/68 107/62 Pulse Oximetry 97 97 93 10/18/20 05:55 Temperature 36.2 C L Pulse Rate 86 Respiratory Rate 18 Blood Pressure 111/54 L Pulse Oximetry 96 Intake/Output Intake/Output: Intake & Output 10/15/20 10/16/20 10/17/20 10/18/20 23:59 23:59 23:59 23:59 Intake Total 480 1200 580 480 Balance 480 1200 580 480 Meds/Results Medications: Active Medications Generic Name Dose Route Start Last Admin Trade Name Freq PRN Reason Stop Dose Admin Acetaminophen 650 mg 10/09/20 22:48 Acetaminophen 325 Mg Tablet PO Q4-6H PRN Pain Rated 1-3 Hydrocodone Bitart/Acetaminophen 1 tab 10/13/20 12:00 10/18/20 12:04 Hydrocodone/Acetaminophen (*Crx) 5-325 Mg Tablet PO 1 tab Q4H [facility] Administration Al Hydrox/Mg Hydrox/Simethicone 10 ml 10/09/20 22:48 Mag Hydrox/Al Hydrox/Simeth 30 Ml Udc PO Q6H PRN Indigestion Aspirin 81 mg 10/10/20 09:00 10/18/20 07:55 Aspirin 81 Mg Enteric Tablet PO 81 mg DAILY [facility] Administration Bisacodyl 10 mg 10/09/20 22:48 Bisacodyl 10 Mg Suppository RECTAL DAILY PRN Constipation Calcium Carbonate 500 mg 10/10/20 09:00 10/18/20 07:55 Calcium/Vitamin D 500 Mg Tablet PO 500 mg QAM [facility] Administration Cyanocobalamin 250 mcg 10/10/20 09:00 10/18/20 07:56 Cyanocobalamin 250 Mcg Tablet PO 250 mcg DAILY [facility] Administration Cyclobenzaprine HCl 10 mg 10/09/20 22:48 10/18/20 09:50 Cyclobenzaprine Hcl 10 Mg Tablet PO 10 mg TID PRN Administration Muscle Spasm Docusate Sodium 100 mg 10/10/20 08:35 Docusate Sodium 100 Mg Capsule PO BID PRN Constipation Enoxaparin Sodium 40 mg 10/10/20 21:00 10/17/20 20:38 Enoxaparin 40 Mg/0.4 Ml Syringe SUB-Q 40 mg HS [facility] Administration Fish Oil 1 gm 10/10/20 09:00 10/18/20 07:55 [place] 3 Polyunsat Fatty Acids 1 Gm Cap PO 1 gm BID [facility] Administration Levothyroxine Sodium 25 mcg 10/10/20 06:30 10/18/20 04:48 Levothyroxine Sodium 25 Mcg Tablet PO 25 mcg DAILY@0630 [facility] Administration Minocycline HCl 50 mg 10/10/20 09:00 10/18/20 07:55 Minocycline Hcl 50 Mg Capsule PO 50 mg BID [facility] Administration Non-Formulary Medication 1 applic 10/10/20 09:00 10/10/20 12:26 Fluorouracil [Efudex] TOPICAL 11/09/20 09:01 Not Given DAILY [facility] Pantoprazole Sodium 40 mg 10/10/20 09:00 10/18/20 07:56 Pantoprazole 40 Mg Tablet PO 40 mg QAM [facility] Administration Senna/Docusate Sodium 2 tab 10/17/20 21:00 0
[2020-10-18 14:00] VITALS: BP 103/56; PULSE 86; RESP 18; TEMP 37.2; O2SAT 96
[2020-10-18 20:15] VITALS: PULSE 86; RESP 18; O2SAT 96
[2020-10-18] MEDS: ENOXAPARIN 40 MG/0.4 ML SYRINGE SUB-Q (20:41)
[2020-10-18 22:00] VITALS: BP 107/52; PULSE 89; RESP 18; TEMP 36.2; O2SAT 96
[2020-10-19] MEDS: HYDROcodone/acetaminophen (*CRX) 5-325 MG TABLET 1 TAB PO ×5 (04:43→20:42)
[2020-10-19] MEDS: LEVOTHYROXINE SODIUM 25 MCG TABLET PO (04:44)
[2020-10-19 06:00] VITALS: BP 135/66; PULSE 74; RESP 18; TEMP 36.3; O2SAT 97
[2020-10-19] MEDS: CYANOCOBALAMIN 250 MCG TABLET PO (07:43)
[2020-10-19] MEDS: ASPIRIN 81 MG ENTERIC TABLET PO (07:43)
[2020-10-19] MEDS: PANTOPRAZOLE 40 MG TABLET PO (07:43)
[2020-10-19] MEDS: CHOLECALCIFEROL 1,000 UNITS TABLET 1000 UNITS PO (07:44)
[2020-10-19] MEDS: OMEGA 3 POLYUNSAT FATTY ACIDS 1 GM CAP PO ×2 (07:44→16:38)
[2020-10-19] MEDS: TAMSULOSIN HCL 0.4 MG CAPSULE PO (07:44)
[2020-10-19] MEDS: MINOCYCLINE HCL 50 MG CAPSULE PO ×2 (07:44→16:38)
[2020-10-19] MEDS: SENNA/DOCUSATE SODIUM TABLET 2 TAB PO ×2 (07:44→20:43)
[2020-10-19] MEDS: CYCLOBENZAPRINE HCL 10 MG TABLET PO (07:44)
[2020-10-19 14:00] VITALS: BP 105/59; PULSE 80; RESP 20; TEMP 36.4; O2SAT 93
--- NOTE | 2020-10-19 15:14 | WPDNEURORHBP ---
Subjective Date/time seen: 10/19/20 15:14 L1 vertebral body compression fracture with spinal stenosis involved the physical therapy and also remains afebrile Review of Systems Review of Systems: All systems reviewed & are unremarkable except as noted in HPI and below Functional Status Ambulation Ability Ability to Ambulate 10 Feet: Contact Guard Ambulation Assistive Devices: Walker, Wheeled Exam Const: General: cooperative Nutritional Appearance: average body habitus Orientation/consciousness: oriented to person and patient oriented x3 Limitations: physical limitations Eyes: General: appearance normal, both eyes and all related structures Neck: Neck: full ROM Resp: Effort & Inspection: normal respiratory effort Auscultation: clear to auscultation bilaterally Cardio: Rate: regular rate GI: Auscultation: normal bowel sounds Neuro: General: patient oriented x3 Objective Data Vital Signs Vital Signs: Vital Signs - 24 hr 10/18/20 20:15 10/18/20 22:00 10/19/20 06:00 Temperature 36.2 C L 36.3 C L Pulse Rate 86 89 74 Respiratory Rate 18 18 18 Blood Pressure 107/52 L 135/66 Pulse Oximetry 96 96 97 Intake/Output Intake/Output: Intake & Output 10/16/20 10/17/20 10/18/20 10/19/20 23:59 23:59 23:59 23:59 Intake Total 5478 457 8773 720 Balance 1470 419 9747 720 Meds/Results Medications: Active Medications Generic Name Dose Route Start Last Admin Trade Name Freq PRN Reason Stop Dose Admin Acetaminophen 650 mg 10/09/20 22:48 Acetaminophen 325 Mg Tablet PO Q4-6H PRN Pain Rated 1-3 Hydrocodone Bitart/Acetaminophen 1 tab 10/13/20 12:00 10/19/20 12:06 Hydrocodone/Acetaminophen (*Crx) 5-325 Mg Tablet PO 1 tab Q4H [facility] Administration Al Hydrox/Mg Hydrox/Simethicone 10 ml 10/09/20 22:48 Mag Hydrox/Al Hydrox/Simeth 30 Ml Udc PO Q6H PRN Indigestion Aspirin 81 mg 10/10/20 09:00 10/19/20 07:43 Aspirin 81 Mg Enteric Tablet PO 81 mg DAILY [facility] Administration Bisacodyl 10 mg 10/09/20 22:48 Bisacodyl 10 Mg Suppository RECTAL DAILY PRN Constipation Calcium Carbonate 500 mg 10/10/20 09:00 10/19/20 07:44 Calcium/Vitamin D 500 Mg Tablet PO 500 mg QAM [facility] Administration Cyanocobalamin 250 mcg 10/10/20 09:00 10/19/20 07:43 Cyanocobalamin 250 Mcg Tablet PO 250 mcg DAILY [facility] Administration Cyclobenzaprine HCl 10 mg 10/09/20 22:48 10/19/20 07:44 Cyclobenzaprine Hcl 10 Mg Tablet PO 10 mg TID PRN Administration Muscle Spasm Docusate Sodium 100 mg 10/10/20 08:35 Docusate Sodium 100 Mg Capsule PO BID PRN Constipation Enoxaparin Sodium 40 mg 10/10/20 21:00 10/18/20 20:41 Enoxaparin 40 Mg/0.4 Ml Syringe SUB-Q 40 mg HS [facility] Administration Fish Oil 1 gm 10/10/20 09:00 10/19/20 07:44 [place] 3 Polyunsat Fatty Acids 1 Gm Cap PO 1 gm BID [facility] Administration Levothyroxine Sodium 25 mcg 10/10/20 06:30 10/19/20 04:44 Levothyroxine Sodium 25 Mcg Tablet PO 25 mcg DAILY@0630 [facility] Administration Minocycline HCl 50 mg 10/10/20 09:00 10/19/20 07:44 Minocycline Hcl 50 Mg Capsule PO 50 mg BID [facility] Administration Non-Formulary Medication 1 applic 10/10/20 09:00 10/10/20 12:26 Fluorouracil [Efudex] TOPICAL 11/09/20 09:01 Not Given DAILY [facility] Pantoprazole Sodium 40 mg 10/10/20 09:00 10/19/20 07:43 Pantoprazole 40 Mg Tablet PO 40 mg QAM [facility] Administration Senna/Docusate Sodium 2 tab 10/17/20 21:00 10/19/20 07:44 Senna/Docusate Sodium Tablet PO 2 tab Q12H [facility] Administration Tamsulosin HCl 0.4 mg 10/10/20 09:00 10/19/20 07:44 Tamsulosin Hcl 0.4 Mg Capsule PO 0.4 mg DAILY [facility] Administration Tramadol HCl 50 mg 10/09/20 22:48 10/15/20 13:52 Tramadol Hcl (*Crx) 50 Mg Tablet PO 50 mg Q4-6H PRN Administration Moderate Pain (Scale Score 4-6 Triamcinolone Acetonide 1 applic 10/18/20 18:56 Triamcinolone Acet 0.1% Oint
[2020-10-19] MEDS: ENOXAPARIN 40 MG/0.4 ML SYRINGE SUB-Q (20:43)
[2020-10-19 22:00] VITALS: BP 113/61; PULSE 82; RESP 18; TEMP 36.6; O2SAT 96
[2020-10-20] MEDS: HYDROcodone/acetaminophen (*CRX) 5-325 MG TABLET 1 TAB PO ×6 (00:34→20:55)
[2020-10-20 05:16] VITALS: BP 117/60; PULSE 69; RESP 18; TEMP 36.2; O2SAT 92
[2020-10-20] MEDS: LEVOTHYROXINE SODIUM 25 MCG TABLET PO (05:16)
[2020-10-20 08:00] VITALS: PULSE 69; RESP 18; O2SAT 92
[2020-10-20] MEDS: TAMSULOSIN HCL 0.4 MG CAPSULE PO (08:42)
[2020-10-20] MEDS: CYANOCOBALAMIN 250 MCG TABLET PO (08:43)
[2020-10-20] MEDS: PANTOPRAZOLE 40 MG TABLET PO (08:43)
[2020-10-20] MEDS: OMEGA 3 POLYUNSAT FATTY ACIDS 1 GM CAP PO ×2 (08:43→17:02)
[2020-10-20] MEDS: MINOCYCLINE HCL 50 MG CAPSULE PO ×2 (08:43→17:02)
[2020-10-20] MEDS: SENNA/DOCUSATE SODIUM TABLET 2 TAB PO ×2 (08:43→20:20)
[2020-10-20] MEDS: ASPIRIN 81 MG ENTERIC TABLET PO (08:43)
[2020-10-20] MEDS: CHOLECALCIFEROL 1,000 UNITS TABLET 1000 UNITS PO (08:43)
[2020-10-20 14:00] VITALS: BP 130/64; PULSE 97; RESP 20; TEMP 36.4; O2SAT 95
[2020-10-20 19:43] LABS: SARS-CoV-2 RNA PCR Negative
[2020-10-20] MEDS: ENOXAPARIN 40 MG/0.4 ML SYRINGE SUB-Q (20:21)
[2020-10-20] MEDS: DOCUSATE SODIUM 100 MG CAPSULE PO (20:21)
[2020-10-20 21:28] VITALS: BP 117/71; PULSE 77; RESP 22; TEMP 36.4; O2SAT 96
[2020-10-21] MEDS: HYDROcodone/acetaminophen (*CRX) 5-325 MG TABLET 1 TAB PO ×6 (00:49→20:50)
[2020-10-21] MEDS: LEVOTHYROXINE SODIUM 25 MCG TABLET PO (05:22)
[2020-10-21 05:43] VITALS: BP 114/64; PULSE 72; RESP 18; TEMP 36.3; O2SAT 93
[2020-10-21 08:00] VITALS: PULSE 72; RESP 18; O2SAT 93
[2020-10-21] MEDS: CHOLECALCIFEROL 1,000 UNITS TABLET 1000 UNITS PO (08:23)
[2020-10-21] MEDS: OMEGA 3 POLYUNSAT FATTY ACIDS 1 GM CAP PO ×2 (08:23→17:05)
[2020-10-21] MEDS: CYANOCOBALAMIN 250 MCG TABLET PO (08:23)
[2020-10-21] MEDS: MINOCYCLINE HCL 50 MG CAPSULE PO ×2 (08:23→17:05)
[2020-10-21] MEDS: ASPIRIN 81 MG ENTERIC TABLET PO (08:23)
[2020-10-21] MEDS: TAMSULOSIN HCL 0.4 MG CAPSULE PO (08:24)
[2020-10-21] MEDS: PANTOPRAZOLE 40 MG TABLET PO (08:24)
[2020-10-21] MEDS: SENNA/DOCUSATE SODIUM TABLET 2 TAB PO ×2 (08:24→20:50)
[2020-10-21 14:00] VITALS: BP 138/66; PULSE 77; RESP 16; TEMP 36.2; O2SAT 96
[2020-10-21] MEDS: ENOXAPARIN 40 MG/0.4 ML SYRINGE SUB-Q (20:50)
[2020-10-21 21:14] VITALS: BP 137/76; PULSE 77; RESP 20; TEMP 36.4; O2SAT 96
[2020-10-22] MEDS: HYDROcodone/acetaminophen (*CRX) 5-325 MG TABLET 1 TAB PO ×4 (00:47→12:37)
[2020-10-22] MEDS: LEVOTHYROXINE SODIUM 25 MCG TABLET PO (05:34)
[2020-10-22 05:52] VITALS: BP 123/65; PULSE 70; RESP 18; TEMP 36.4; O2SAT 94
[2020-10-22] MEDS: CHOLECALCIFEROL 1,000 UNITS TABLET 1000 UNITS PO (08:32)
[2020-10-22] MEDS: MINOCYCLINE HCL 50 MG CAPSULE PO (08:32)
[2020-10-22] MEDS: ASPIRIN 81 MG ENTERIC TABLET PO (08:32)
[2020-10-22] MEDS: TAMSULOSIN HCL 0.4 MG CAPSULE PO (08:32)
[2020-10-22] MEDS: SENNA/DOCUSATE SODIUM TABLET 2 TAB PO (08:32)
[2020-10-22] MEDS: OMEGA 3 POLYUNSAT FATTY ACIDS 1 GM CAP PO (08:32)
[2020-10-22] MEDS: PANTOPRAZOLE 40 MG TABLET PO (08:32)
[2020-10-22] MEDS: CYANOCOBALAMIN 250 MCG TABLET PO (08:32)
--- NOTE | 2020-10-22 11:13 | WPDNEURORHBP ---
Subjective Date/time seen: 10/22/20 11:13 L1 vertebral body compression fracture with spinal stenosis involving the therapy remains afebrile with normal vital signs blood pressure 123/65 pulse 70 respiration 18 pulse ox 94% on room air Review of Systems Review of Systems: All systems reviewed & are unremarkable except as noted in HPI and below Functional Status Ambulation Ability Ability to Ambulate 10 Feet: Contact Guard Ambulation Assistive Devices: Walker, Wheeled Transfers Ability Ability to Transfer In/Out of Chair: Contact Guard Exam Const: General: cooperative Nutritional Appearance: overweight HENMT: Head: normocephalic Ears: hearing grossly normal bilaterally General nose exam: Normal external nose present Face and sinus: normal facial exam Mouth: Yes Normal oral and palatal mucosa present Eyes: General: appearance normal, both eyes and all related structures Neck: Neck: full ROM Cardio: Rate: regular rate Rhythm: regular rhythm Skin: General skin exam: no rashes or lesions noted Neuro: General: patient oriented x3 and moves all extremities Psych: Appearance: grossly normal Objective Data Vital Signs Vital Signs: Vital Signs - 24 hr 10/21/20 14:00 10/21/20 21:14 10/22/20 05:52 Temperature 36.2 C L 36.4 C L 36.4 C L Pulse Rate 77 77 70 Respiratory Rate 16 20 18 Blood Pressure 138/66 137/76 123/65 Pulse Oximetry 96 96 94 Intake/Output Intake/Output: Intake & Output 10/19/20 10/20/20 10/21/20 10/22/20 23:59 23:59 23:59 23:59 Intake Total 960 720 480 360 Balance 960 720 480 360 Meds/Results Medications: Active Medications Generic Name Dose Route Start Last Admin Trade Name Freq PRN Reason Stop Dose Admin Acetaminophen 650 mg 10/09/20 22:48 Acetaminophen 325 Mg Tablet PO Q4-6H PRN Pain Rated 1-3 Hydrocodone Bitart/Acetaminophen 1 tab 10/13/20 12:00 10/22/20 08:32 Hydrocodone/Acetaminophen (*Crx) 5-325 Mg Tablet PO 1 tab Q4H SALOME Administration Al Hydrox/Mg Hydrox/Simethicone 10 ml 10/09/20 22:48 Mag Hydrox/Al Hydrox/Simeth 30 Ml Udc PO Q6H PRN Indigestion Aspirin 81 mg 10/10/20 09:00 10/22/20 08:32 Aspirin 81 Mg Enteric Tablet PO 81 mg DAILY SALOME Administration Bisacodyl 10 mg 10/09/20 22:48 Bisacodyl 10 Mg Suppository RECTAL DAILY PRN Constipation Calcium Carbonate 500 mg 10/10/20 09:00 10/22/20 08:32 Calcium/Vitamin D 500 Mg Tablet PO 500 mg QAM SALOME Administration Cyanocobalamin 250 mcg 10/10/20 09:00 10/22/20 08:32 Cyanocobalamin 250 Mcg Tablet PO 250 mcg DAILY SALOME Administration Cyclobenzaprine HCl 10 mg 10/09/20 22:48 10/19/20 07:44 Cyclobenzaprine Hcl 10 Mg Tablet PO 10 mg TID PRN Administration Muscle Spasm Docusate Sodium 100 mg 10/10/20 08:35 10/20/20 20:21 Docusate Sodium 100 Mg Capsule PO 100 mg BID PRN Administration Constipation Enoxaparin Sodium 40 mg 10/10/20 21:00 10/21/20 20:50 Enoxaparin 40 Mg/0.4 Ml Syringe SUB-Q 40 mg HS SALOME Administration Fish Oil 1 gm 10/10/20 09:00 10/22/20 08:32 [place] 3 Polyunsat Fatty Acids 1 Gm Cap PO 1 gm BID SALOME Administration Levothyroxine Sodium 25 mcg 10/10/20 06:30 10/22/20 05:34 Levothyroxine Sodium 25 Mcg Tablet PO 25 mcg DAILY@0630 [facility]OME Administration Minocycline HCl 50 mg 10/10/20 09:00 10/22/20 08:32 Minocycline Hcl 50 Mg Capsule PO 50 mg BID SALOME Administration Non-Formulary Medication 1 applic 10/10/20 09:00 10/10/20 12:26 Fluorouracil [Efudex] TOPICAL 11/09/20 09:01 Not Given DAILY [facility] Pantoprazole Sodium 40 mg 10/10/20 09:00 10/22/20 08:32 Pantoprazole 40 Mg Tablet PO 40 mg QAM [facility] Administration Senna/Docusate Sodium 2 tab 10/17/20 21:00 10/22/20 08:32 Senna/Docusate Sodium Tablet PO 2 tab Q12H [facility] Administration Tamsulosin HCl 0.4 mg 10/10/20 09:00 10/22/20 08:32 Tamsulosin Hcl 0.4 Mg Capsule PO 0.4 m
--- NOTE | 2020-10-22 12:32 | PC.NURSE ---
report given to Estrellita at [facility]
--- NOTE | 2020-10-24 17:20 | PM.DS ---
DS: Admitting Diagnosis Admitting Diagnosis Admitting Diagnosis: L1 vertebral body fracture DS: Summary Hospital Course Hospital Course: gradual improvement but she was discharged to half-way facility Time Spent with Patient Time attestation: Total time spent providing and/or coordinating discharge services:ADMISSION FUNCTION: 80 years old lady admitted to the rehab with primary have impairment category of orthopedic there is L1 vertebral fracture in addition to the comorbid conditions of 1. Hypo thyroidism 2. Hyperlipidemia 3. GERD and 4. No history of COVID. at the time of admission her functional measures were as follows Eating independent Oral Care substantial or maximal assist Toileting Hygiene dependent Shower/Bathing substantial maximal assist Upper Body Dressing substantial maximal assist Lower Body Dressing dependent Don[place] Footwear dependent Rolling Left and Right partial assistant professor of business Sit to Lying partial assistance Lying to Sitting substantial or maximal assist Sit to Stand substantial or maximal assist Bed to Chair Transfers substantial maximal assist Toilet Transfers substantial a maximal assist Car Transfers not applicable Walking not applicable Walking 50' with Two Turns not applicable Walking 150' not applicable Curb or Step not applicable 4 Steps not applicable 12 Steps not applicable Picking Up Object not applicable [Wheelchair Mobility 50'] not applicable [Wheelchair Mobility 150'] not applicable GOALS: Eating [INDEPENDENT] Oral Care [INDEPENDENT] Toileting Hygiene [INDEPENDENT] Shower/Bathing set up Upper Body Dressing [INDEPENDENT] Lower Body Dressing set up Donning/[place] Footwear set up Rolling Left and Right [INDEPENDENT] Sit to Lying [INDEPENDENT] Lying to Sitting [INDEPENDENT] Sit to Stand [INDEPENDENT] Bed to Chair Transfers [INDEPENDENT] Toilet Transfers [INDEPENDENT] Car Transfers [INDEPENDENT] Walking 10' [INDEPENDENT] Walking 50' with Two Turns [INDEPENDENT] Walking 150' [INDEPENDENT] Curb or Step supervision 4 Steps [INDEPENDENT] 12 Steps supervision Picking Up Object [INDEPENDENT] [Wheelchair Mobility 50'] [INDEPENDENT] [Wheelchair Mobility 150'] [INDEPENDENT] DISCHARGE PERFORMANCE: Eating [INDEPENDENT] Oral Care set up Toileting Hygiene partial or mod assistance Shower/Bathing supervision Upper Body Dressing setup Lower Body Dressing set up Donning/[place] Footwear partial or mod assistance Rolling Left and Right [INDEPENDENT] Sit to Lying [INDEPENDENT] Lying to Sitting [INDEPENDENT] Sit to Stand supervision Bed to Chair Transfers supervision Toilet Transfers supervision Car Transfers supervision Walking 10' supervision Walking 50' with Two Turns not applicable Walking 150' not applicable Curb or Step partial or mod assist 4 Steps partial mod assist 12 Steps not applicable Picking Up Object super vision [Wheelchair Mobility 50'] [INDEPENDENT] [Wheelchair Mobility 150'] [INDEPENDENT] # during the entire hospitalization patient remain actively involved in the physical and occupational therapy she was able to ambulate with wheeled walker and transfer in and out of chair with contact guard she was ambulating up to 10ft a general physical examination remained stable and so as the neurological examination. At the time of discharge her vital signs were stable and she had no falls or injuries room the entire hospitalization she was discharged to half-way facility at [facility] [facility] The patient had [no falls]. Discharge Plan Discharge Attending physician on discharge: Ez Holm Consulting providers: Jovani Curtis Discharging Clinician: Ez Holm Patient Disposition: [facility] Activity: no driving and as tolerated Diet: regular Patient Instructions: Antibiotic Form, Enoxaparin (By injection), Pain Management in Older Adults (DC) Stand Alone Forms: General Discharge Information Follow
== END 2020-10-22 12:45 | DRG 561 ==
PROVIDERS: Admitting Provider Psychiatry & Neurology Neurology; PCP Family Medicine; Visit Provider Psychiatry & Neurology Neurology
DX: Z47.89 Encounter for other orthopedic aftercare (principal); S32.011D Stable burst fracture of first lumbar vertebra, subsequent encounter for fracture with routine healing; E78.5 Hyperlipidemia, unspecified; E83.51 Hypocalcemia; E03.9 Hypothyroidism, unspecified; E88.09 Other disorders of plasma-protein metabolism, not elsewhere classified; K21.9 Gastro-esophageal reflux disease without esophagitis; M81.0 Age-related osteoporosis without current pathological fracture; Z85.828 Personal history of other malignant neoplasm of skin; Z96.659 Presence of unspecified artificial knee joint; W19.XXXD Unspecified fall, subsequent encounter; M48.07 Spinal stenosis, lumbosacral region
CPT/HCPCS: 36415; 72128; 72131; 80048; 85025; 97110; 97116; 97161; 97167; 97530; 97535; 97542; A9270; C9803; J1650; U0003; U0005